=== PATIENT | male | born 1945 | race Caucasian/White ===

== ENCOUNTER → 2017-06-17 08:30 | Outpatient (CLI) | payer MEDICARE, SELFPAY ==
[2017-06-17 09:29] LABS: AST(SGOT) 29 U/L (15-37); Alanine Aminotransfer ALT/SGPT 36 U/L (16-61); Albumin, Serum 3.5 g/dL (3.2-5.0); Alkaline Phosphatase 66 U/L (45-117); Anion Gap 8 (5-15); BUN 19 mg/dL (7-18); BUN/Creat Ratio 20.9 RATIO (10-20); Calcium,Total 8.6 mg/dL (8.5-10.1); Chloride 104 mmol/L (98-107); Cholesterol 157 mg/dL (200); Creatinine, Serum 0.91 mg/dL (0.70-1.30); EST Glomerular Filtration Rate 87 mL/min (>60); Est Glom Filt Rate - Afr Amer 106 mL/min (>60); Globulin 3.4 g/dL (2.2-4.2); Glucose 139 mg/dL (70-110); High Density Lipoprotein 46 mg/dL; Potassium 4.6 mmol/L (3.5-5.1); Protein, Total 6.9 g/dL (6.4-8.2); Sodium Level 141 mmol/L (136-145); Triglycerides 133 mg/dL; Very Low Density Lipoprotein 27 mg/dL (5-40)
== END ==
PROVIDERS: Family Provider Family Medicine; PCP Family Medicine; Visit Provider Urology
DX: I10 Essential (primary) hypertension (principal); R97.20 Elevated prostate specific antigen [PSA]
CPT/HCPCS: 36415; 80053; 80061; 84153

== ENCOUNTER → 2017-07-14 07:21 | Outpatient (CLI) | payer MEDICARE, SELFPAY | PROVIDERS: Family Provider Family Medicine; PCP Family Medicine; Visit Provider Urology | DX: R97.20 Elevated prostate specific antigen [PSA] (principal) ==

== ENCOUNTER → 2017-08-18 17:31 | Outpatient (CLI) | payer MEDICARE, SELFPAY ==
--- NOTE | 2017-08-18 | IMM_PTH ---
PATIENT: JENI LOYA LOC: [facility] U#:[id number] AGE/SX: 80/M ROOM: RE08/18/[address]: Dr. London Contreras MD : 1945 BED: DIS: SPEC #: [id number] RECD: 08/20/17 10:29 STATUS: ALEC REQ #: [id number] GRACE: 08/18/17 00:[address]: Lonodn Contreras DEPT: IMMUNOHISTOCHEMISTRY RECD BY: Virginia Foote ENTERED: 08/20/17 10:32 SP TYPE: IMMUNO OTHR DR: Dr. Surinder Frye MD Tissues: B - PROSTATE RIGHT C - PROSTATE RIGHT D - PROSTATE LEFT E - PROSTATE LEFT F - PROSTATE LEFT Procedures: 34BE12 (add) P40 (add) 34BE12 (initial) PHYSICIAN & INSTITUTION [place] [id number] SPECIMEN INFORMATION: Tissue Source: B ? Right prostate mid, C ? Right prostate base, D ? Left prostate apex, E ? Left prostate mid, F ? Left prostate base Clinical Info: Elevated PSA Specimen Number: [id number] B-F CPT code: 44055, 42729 x9 METHODOLOGY: Deparaffinized sections of prefer/formalin-fixed tissue or PAP/DQ stained slides are incubated with monoclonal/polyclonal antibodies/oligonucleotide probes. Localization is made via biotin free immunoperoxidase method. Appropriate controls are performed and reacted as expected. Results on target cell population are indicated in the following table: RESULTS: ANTIBODY / CLONE RESULT Block B P40 (BC28) negative 34BE12 (34BE12) negative Block C P40 (BC28) negative 34BE12 (34BE12) negative Block D P40 (BC28) negative 34BE12 (34BE12) negative Block E P40 (BC28) negative 34BE12 (34BE12) negative Block F P40 (BC28) positive 34BE12 (34BE12) positive These tests were developed and their performance characteristics determined by [facility]. They may not have been cleared or approved by the U.S. Food and Drug Administration. The FDA has determined that such clearance or approval is not necessary. INTERPRETATION: B. Right prostate, mid, core biopsy: Adenocarcinoma. C. Right prostate, base, core biopsy: Atypical small acinar proliferation suspicious for carcinoma. D. Left prostate, apex, core biopsy: Adenocarcinoma. E. Left prostate, mid, core biopsy: Adenocarcinoma. F. Left prostate, base, core biopsy: High-grade prostatic intraepithelial neoplasia. AM:doni 08/20/17
--- NOTE | 2017-08-18 08:00 | PROSBIL_PTH ---
PATIENT: JENI LOYA LOC: [facility] U#:[id number] AGE/SX: 80/M ROOM: RE08/18/[address]: Dr. London Contreras MD : 1945 BED: DIS: SPEC #: [id number] RECD: 08/18/17 17:14 STATUS: ALEC SVETLANA #: [id number] GRACE: 08/18/17 08:[address]: London Contreras DEPT: SURGICAL PATHOLOGY RECD BY: Ko Li ENTERED: 08/19/17 08:04 SP TYPE: PROST BX DWAYNE DR: Dr. Surinder Frye MD Tissues: A - PROSTATE RIGHT B - PROSTATE RIGHT C - PROSTATE RIGHT D - PROSTATE LEFT E - PROSTATE LEFT F - PROSTATE LEFT Procedures: PROSTATE BX HEADER OPERATION: Prostate biopsy PRE-OP DIAGNOSIS: Elevated PSA TISSUE SUBMITTED: A - Right apex, B - Right mid, C - Right base, D - Left apex, E - Left mid, F - Left base MICROSCOPIC DIAGNOSIS A. Right prostate, apex, core biopsy: Adenocarcinoma: Scarsdale grade: 7 (3+4) Cores involved: 2 out of 2 Tissue involved: 35% Greatest tumor length: 3 mm Perineural invasion: Positive B. Right prostate, mid, core biopsy: Focal high-grade prostatic intraepithelial neoplasia (HGPIN). Focal atypical small acinar proliferation highly suspicious for adenocarcinoma, Logan 3+3. C. Right prostate, base, core biopsy: Adenocarcinoma: [place] grade: 6 (3+3) Cores involved: 1 out of 2 Tissue involved: 1% Greatest tumor length: <1 mm D. Left prostate, apex, core biopsy: Adenocarcinoma: Logan grade: 7 (3+4) Cores involved: 2 out of 2 Tissue involved: 15% Greatest tumor length: 2.5 mm E. Left prostate, mid, core biopsy: Adenocarcinoma: [place] grade: 6 (3+3) Cores involved: 1 out of 2 Tissue involved: 1% Greatest tumor length: 0.5 mm F. Left prostate, base, core biopsy: Focal high-grade prostatic intraepithelial neoplasia (HGPIN). AM:doni 08/20/17 COMMENT B-F. Immunohistochemistry ([id number]) supports the above diagnosis. MICROSCOPIC DESCRIPTION Slides are reviewed. GROSS DESCRIPTION A - Received is one container designated prostate, right apex. The specimen consists of two elongated fragments of light yan-white soft tissue measuring 1.5 and 1.7 cm in length and 0.1 cm in diameter. The specimen is totally submitted in one cassette. B - Received is one container designated prostate, right mid. The specimen consists of two elongated fragments of light yan-white soft tissue each measuring 1.5 cm in length and 0.1 cm in diameter. The specimen is totally submitted in one cassette. C - Received is one container designated prostate, right base. The specimen consists of two elongated fragments of light yan-white soft tissue each measuring 1.2 cm in length and 0.1 cm in diameter. The specimen is totally submitted in one cassette. D - Received is one container designated prostate, left apex. The specimen consists of two elongated fragments of light yan-white soft tissue each measuring 1.5 cm in length and 0.1 cm in diameter. The specimen is totally submitted in one cassette. E - Received is one container designated prostate, left mid. The specimen consists of two elongated fragments of light yan-white soft tissue each measuring 1.7 cm in length and 0.1 cm in diameter. The specimen is totally submitted in one cassette. F - Received is one container designated prostate, left base. The specimen consists of three elongated fragments of light yan-white soft tissue measuring 0.5 to 1.8 cm in length and 0.1 cm in diameter. The specimen is totally submitted in one cassette. / TIFFANIE:doni 08/19/17 TC:0 CPT: G0146
== END ==
PROVIDERS: Family Provider Family Medicine; PCP Family Medicine; Visit Provider Urology
DX: R97.20 Elevated prostate specific antigen [PSA] (principal)
CPT/HCPCS: 88305; 88341; 88342; G0416

== ENCOUNTER → 2017-08-27 13:52 | Outpatient (CLI) | payer MEDICARE, SELFPAY ==
--- NOTE | 2017-08-27 13:56 | CT_ITS ---
STUDY: CT ABDOMEN AND PELVIS WITH CONTRAST REASON FOR EXAM: Male, 72 years old. Prostate cancer. Prior splenectomy. RADIATION DOSAGE (If Supplied By Facility): CTDIvol = ( 15.63 ) mGy, DLP = ( 606.68 ) mGycm TECHNIQUE: Transaxial images were obtained from the dome of the diaphragm to the symphysis pubis without oral contrast. 100 ml of Isovue 300 contrast was administered. Sagittal and coronal images were reconstructed. Individualized dose optimization techniques were used for this CT. COMPARISON: None. FINDINGS: The visualized lung bases are unremarkable. The visualized portions of the heart are within normal limits. There is decreased attenuation of the liver consistent with steatosis. There are surgical clips in the gallbladder fossa consistent with a prior cholecystectomy. The patient is status post splenectomy. Normal pancreas. Normal bilateral adrenal glands. There is a 2 cm cyst in the lower pole of the right kidney. Normal left kidney. There is a small hiatal hernia. Normal small intestine. There are multiple colonic diverticula consistent with diverticulosis. The appendix is visualized and appears normal. There is diffuse atherosclerotic calcification of the abdominal aorta, without a demonstrated aneurysm. Normal inferior vena cava. Normal retroperitoneum. Normal urinary bladder. There is enlargement of the prostate gland. It measures 5.2 cm x 5 cm. Small bilateral inguinal hernias containing fat. There are mild degenerative changes of the visualized lumbar spine. Loss of height of the superior endplate of the T12 vertebrae. CT/Abdomen/Pelvis WITH Contrast IMPRESSION: Fatty infiltration of the liver. The patient is status post splenectomy and cholecystectomy. Sigmoid diverticulosis. Prostatic enlargement. Electronically Signed: Alex Tenorio MD at 14:54 EDT Tel [phone], Service support ,
[2017-08-27 14:16] LABS: CREATININE FINGERSTICK 0.8 mg/dL (0.70-1.30); EGFR FINGERSTICK > 60.0000 mL/min (>60)
== END ==
PROVIDERS: Family Provider Family Medicine; PCP Family Medicine; Visit Provider Urology
DX: C61 Malignant neoplasm of prostate (principal); K76.0 Fatty (change of) liver, not elsewhere classified; K57.30 Diverticulosis of large intestine without perforation or abscess without bleeding; Z90.49 Acquired absence of other specified parts of digestive tract; Z90.81 Acquired absence of spleen
CPT/HCPCS: 74177; Q9967

== ENCOUNTER → 2017-08-31 10:21 | Outpatient (CLI) | payer MEDICARE, SELFPAY ==
--- NOTE | 2017-08-31 10:23 | NM_ITS ---
CLINICAL: 72-year-old male with recent diagnosis of primary prostate carcinoma. WHOLE BODY 99m Tc MDP RADIONUCLIDE BONE SCINTIGRAPHY COMPARISON: MRI of the prostate report 08/19/2017, CT of the abdomen-pelvis report 08/27/2017 FINDINGS: Following the intravenous administration of 23.5 mCi of 99m Tc MDP, whole body bone images reveal: 1. Increased radiopharmaceutical concentration is identified in the acromioclavicular compartment of the right shoulder, glenohumeral compartments of both shoulders, the sternoclavicular compartment of the left shoulder, left wrist, left knee, second lumbar vertebra posteriorly on the left, ninth thoracic vertebra posteriorly on the right, left midfoot. 2. The remaining skeletal structures are scintigraphically unremarkable with normal-appearing renal images and urinary bladder activity identified. An increase in uptake is identified in the midline calvarium contiguous to the sagittal suture most consistent with a normal variant. NM/Bone Scan Whole Body IMPRESSION: 1. The increase in radiopharmaceutical concentration identified in the bilateral shoulders, left wrist, left knee, thoracic and lumbar spine, left midfoot is most consistent with degenerative arthritis. 2. There is no definitive scintigraphic evidence of diffuse axial skeletal metastatic disease on the current examination. Electronically Signed: Ko Gutierrez DO at 20:22 EDT Tel , Service support ,
== END ==
PROVIDERS: Family Provider Family Medicine; PCP Family Medicine; Visit Provider Urology
DX: C61 Malignant neoplasm of prostate (principal)
CPT/HCPCS: 78306

== ENCOUNTER 2017-10-14 05:21 | Inpatient (IN) | payer MEDICARE, SELFPAY ==
[2017-10-05 14:24] VITALS: BP 147/96; PULSE 70; RESP 16; TEMP 36.6; O2SAT 99; BMI 24.6
--- NOTE | 2017-10-05 14:32 | SDCEKG_ITS ---
Test Reason : Blood Pressure : / mmHG Vent. Rate : 068 BPM Atrial Rate : 068 BPM P-R Int : 154 ms QRS Dur : 080 ms QT Int : 422 ms P-R-T Axes : 055 064 068 degrees QTc Int : 448 ms Normal sinus rhythm Normal ECG Confirmed by BALTAZAR NOGUERA, STEPHANIE ([id number]), subeditor JESSIE MASON ([id number]) on 10/09/2017 11:02:14 AM Referred By: London Contreras Confirmed By:STEPHANIE LEDESMA MD
[2017-10-05 15:00] LABS: Hematocrit 43.8 % (40-54); Hemoglobin 14.7 g/dl (13.0-16.5); Mean Corp Hgb Conc 33.6 g/gl (32-36); Mean Corpuscular Hgb 30.6 pg (27.0-32.0); Mean Corpuscular Volume 91.1 fL (80-94); Mean Platelet Vol. 10.9 fl (6.2-12.0); Platelet Count 220 K/mm3 (150-450); RBC Distribution Width CV 15.2 % (11.6-14.6); RBC Distribution Width SD 49.5 fl (35.1-43.9); Red Blood Count 4.81 M/mm3 (4.6-6.2); White Blood Count 7.7 K/mm3 (4.4-11.0)
[2017-10-05 15:03] LABS: Scan Indicated on CBC? Y/N NO
[2017-10-05 15:10] LABS: Anion Gap 8 (5-15); BUN 23 mg/dL (7-18); BUN/Creat Ratio 25.7 RATIO (10-20); Calcium,Total 8.9 mg/dL (8.5-10.1); Chloride 107 mmol/L (98-107); EST Glomerular Filtration Rate 89 mL/min (>60); Est Glom Filt Rate - Afr Amer 108 mL/min (>60); Estimated Creatinine Clearance 80.18 ml/min; Glucose 96 mg/dL (74-106); Potassium 3.7 mmol/L (3.5-5.1); Sodium Level 143 mmol/L (136-145)
[2017-10-14] VITALS (10 sets, daily range): BP systolic 118–154; BP diastolic 59–92; PULSE 68–96; RESP 14–16; TEMP 36.1–37.4; O2SAT 96–100; BMI 24.6; BMI 24.5
--- NOTE | 2017-10-14 07:30 | PROST_PTH ---
PATIENT: JENI LOYA LOC: [facility] U#:[id number] AGE/SX: 72/M ROOM: [facility]18 RE10/14/[address]: Dr. London Contreras MD : 1945 BED: 1 DIS: 10/16/2017 SPEC #: [id number] RECD: 10/14/17 15:15 STATUS: ALEC RERachel #: [id number] GRACE: 10/14/17 07:[address]: London Contreras DEPT: SURGICAL PATHOLOGY RECD BY: Ko Li ENTERED: 10/15/17 08:18 SP TYPE: PROSTATE OTHR DR: Dr. Surinder Frye MD Tissues: A - Prostate, NOS B - Lymph node of pelvis, NOS C - Lymph node of pelvis, NOS D - Adipose tissue Procedures: Surgery Specimen Level IV Surgery Specimen Level HEADER OPERATION: Lap robotic prostatectomy PRE-OP DIAGNOSIS: Prostate cancer TISSUE SUBMITTED: A ? Prostate, B ? Left lymph node, C ? Right lymph node, D ? Fat over prostate MICROSCOPIC DIAGNOSIS A. Prostate, radical prostatectomy: Prostatic adenocarcinoma. See cancer summary below. B. Left lymph node, biopsy: A piece of mature adipose tissue, negative for carcinoma. No lymph node tissue is identified. C. Right lymph node, biopsy: A piece of mature adipose tissue, negative for carcinoma. No lymph node tissue is identified. D. Fat over prostate, biopsy: Mature adipose tissue, negative for carcinoma. PROSTATE CANCER (RADICAL) SUMMARY: Procedure - radical prostatectomy Prostate size ? 6 cm transversely, 4.5 cm anterior-posteriorly, 4.5 cm from apex to base Prostate weight ? 74 gm Lymph node sampling ? no lymph nodes identified (see specimen B & C). Histologic type ? adenocarcinoma (acinar, not otherwise specified) Histologic grade (Logan Pattern): Primary pattern - 3 Secondary pattern - 4 Tertiary pattern ? not applicable Total Glyndon score - 7 Tumor Quantitation: Proportion (%) of prostate involved by tumor - ~20% Extraprostatic extension ? not identified Seminal vesicle invasion - not identified Margins ? apical margin is focally involved by invasive carcinoma. Treatment effect on carcinoma ? no known presurgical therapy Lymph-Vascular invasion - not identified Perineural invasion - present Regional lymph nodes ? no nodes found Distant metastasis ? not applicable Additional pathologic findings - Focal high-grade prostatic intraepithelial neoplasia (HGPIN). - Chronic inflammation. - Benign prostatic hyperplasia, glandular and stromal type. Ancillary studies ? not performed PATHOLOGIC STAGE: pT2c pNx Mx The above summary is in compliance with [employer] (CAP) Cancer Protocols Checklist and [place] [employer] Committee on Cancer (AJCC), Staging Manual, 8th Ed. SJ:doni 10/27/17 COMMENT A. The tumor involves the right lobe apical portion of the prostate and left lobe apical, mid and basal portion of the prostate and present in right lobe slides 4 and 8 and in the left lobe 3, 7, 10, 12, 14 and 18. Please make reference to previous specimen ([id number]) right prostate, apex, right apex, base, left prostate, apex and left prostate, mid, core biopsy with diagnosis of adenocarcinoma and right prostate, mid and left prostate, base with diagnosis of focal high-grade prostatic intraepithelial neoplasia. Case has been reviewed in consultation with Dr. Haines who concurs with the above diagnosis. IDC:AM MICROSCOPIC DESCRIPTION Slides are reviewed. GROSS DESCRIPTION A - Received in fixative is one container labeled with the patient's name and designated prostate. The specimen consists of a radical prostatectomy specimen consisting of prostate and bilateral seminal vesicle weighing 74 gm. The prostate measures 6 cm transversely, 4.5 cm anterior-posteriorly and 4.5 cm from apex to base. The right seminal vesicle measures 3 x 1 x 1 cm and right vas deferens measures 3 cm in length and 0.4 cm in diameter. The left seminal vesicle measures 2.5 x 1 x 0.5 cm and left vas deferens measures 3.5 cm in length and 0.4 cm in diameter. The specimen is inked as follows: anterior surface prostate ? yellow, posterior surface prostate ? black, right lobe lateral surface ? blue, left lobe lateral surface ? green, right seminal vesicle and vas deferens posterior surface ? black, anterior surface ? blue, left seminal vesicle posterior surface ? black and anterior surface ? green. Sections of the prostate do not reveal any obvious mass lesion. Machine Gunner sections are submitted in 20 cassettes as follows: 1 ? right seminal vesicle and vas deferens, 2 ? left seminal vesicle and vas deferens, 3 & 4 ? apical margin, enface, 5 & 6 ? bladder base margin, enface, 7-10 ? apical portion of the prostate, 11-14 ? middle portion of the prostate, 15-20 ? basal portion of the prostate (cassettes 19 & 20 contain the most basal portion of the prostate). Sections will be submitted after infusion cycle. B - Received in fixative is one container labeled with the patient's name and designated left lymph node. The specimen consists of a piece of yellow adipose tissue measuring 0.7 x 0.5 x 0.1 cm. The entire specimen is submitted in one cassette. Sections will be submitted after infusion cycle. C - Received in fixative is one container labeled with the patient's name and designated right lymph node. The specimen consists of a piece of yellow adipose tissue measuring 1.5 x 0.2 x 0.1 cm. The entire specimen is submitted in one cassette. Sections will be submitted after infusion cycle. D - Received in fixative is one container labeled with the patient's name and designated fat over prostate. The specimen consists of a piece of yellow adipose tissue measuring 3 x 2 x 0.3 cm. The entire specimen is submitted in one cassette. Sections will be submitted after infusion cycle. / SJ:rg 10/15/17 TC:0 CPT: 10650, 35191 x3
[2017-10-14] MEDS: Cefazolin 2 GM in 0.9% Normal Saline 100 ML IV (07:35)
[2017-10-14] MEDS: Bupivacaine Mpf 0.5% 30 ML VIAL (11:35)
--- NOTE | 2017-10-14 12:01 | OP.PCM_ITS ---
Report of Operation Date of Procedure: 10/14/17 Pre-Operative Diagnosis: Prostate cancer Post-Operative Diagnosis: Same Surgery/Procedure Performed:: Laparoscopic robotic assisted radical prostatectomy, EMG monitoring the pelvic nerves and sphincter, suture suspension of the urethra, bilateral pelvic lymph node dissection. Description of Surgical Findings:: 72-year-old male taken back to the operating room after smooth induction of anesthesia he was placed supine on the table in the dorsal lithotomy position for approach the prostate with the robot, I used a Veress needle to obtain his CO2 gas in the abdomen, the abdomen been prepped and draped in usual fashion, I then used the Visiport to go into the abdomen inspected the abdomen took down some adhesions and then placed my ports, released the sigmoid colon off the lateral wall, and retracted the colon in the pelvis, dissected out the left and right vas deferens and left the right seminal vesicle posterior to the prostate , then dropped the bladder and created the space of Retzius, dissected out some lymph node tissue sampling to the right side, dissected out some lymph node tissue sampling to the left side, I then dissected out the prostate apical tissue apical the prostate was dissected out put a stitch in the dorsal vein complex, I then dissected between the prostate and the bladder he had a prior TURP and a very large prostate and so the opening to the bladder was quite large once the separation of the bladder and prostate was completed I then identified the pedicle of the right side clipped the pedicle identify the neurovascular bundle and spare the neurovascular bundle on the right side all the way to the apex, I then went to the left side identified the neurovascular bundle on the left side and the pedicle on the left side clipped the pedicle and then dissected the neurovascular bundle off the prostate and the left side all the way to the apex, then transected to the dorsal vein complex circumferentially dissected around the urethra, I then placed EMG electrodes on the lateral pelvic wall on the right side the left side checked for the electrical's signal and action potential and there is still present on the left side the right side and also around the urethra I did this to then find the nerves were sparing., Then I transected through the urethra, I then reached reconstructed the bladder neck with Vicryl stitches in a running fashion for a reverse tennis racquet closure to get a nice opening in the urethra and bladder neck to match up in size. I then then did a suture suspension of the urethra to prevent incontinence between the bladder and the urethra once the anastomosis was completed over a catheter it was watertight, I re-tacked the bladder back up to the anterior abdominal wall, he had prior mesh surgery and this was all intact and in place, we extracted the prostate from the umbilicus, closed all our ports, and closed our incisions with subcuticular stitches patient anesthetic was reversed taken back to PACU good condition he will follow -up in the office in about 2 weeks to remove the catheter. Type of Anesthesia:: General - Admit VTE Documentation VTE Present on Admission: No VTE Mechan Device Prophylaxis: SCD's VTE Pharm Prophylaxis ordered?: No Reason prophylaxis not ordered:: Treatment Not Indicated
--- NOTE | 2017-10-14 12:09 | PCM.DC.URO ---
Discharge Diet: Light diet - advance as tolerated, Soft diet Discharge Activity: May Not Drive, May not drive while taking narcotic pain medications., May Shower Call your doctor if your incision/area has: Continuous Slow Oozing, Sudden Increased Bleeding, Increased Pain/ Swelling, Increased Redness, Foul Smelling Discharge, Swelling at the incision site Call your doctor if you observe: Fever of 101 or Higher Suture Line Care: Avoid Pulling/Pushing, Avoid Pinching/Bending Instructions: Discharge Instructions for Radical Prostatectomy Allergies/Adverse Reactions: Allergies No Known Allergies Allergy (Unverified 09/04/17 09:02) Medications to take at Discharge aspirin 81 mg chewable tablet 81 mg PO DAILY 09/04/17 atorvastatin 20 mg tablet 20 mg PO QHS 30 Days #30 09/04/17 metoprolol succinate ER 25 mg tablet,extended release 24 hr 25 mg PO DAILY 30 Days #30 09/04/17 omega 6-znt-dfm-fish oil 1,000 mg (120 mg-180 mg) capsule 1,500 cap PO DAILY 09/04/17 vitamin B12 0.5 mg-folic acid 1 mg tablet 500 mg PO DAILY 09/04/17 Lisinopril [Prinivil] 10 mg PO DAILY 10/05/17 Ciprofloxacin [Cipro] 500 mg PO DAILY #14 tab 10/14/17 Docusate Sodium [Colace] 100 mg PO BID #20 cap 10/14/17 Hydrocodone/Acetaminophen [[place] 5-325 Tablet] 1 ea PO Q4H PRN PRN 5 Days #14 tab 10/14/17 The following prescriptions were given: Hydrocodone/Acetaminophen [[place] 5-325 Tablet] 1 ea PO Q4H PRN PRN 5 Days #14 tab PRN Reason: Pain Ciprofloxacin [Cipro] 500 mg PO DAILY #14 tab Docusate Sodium [Colace] 100 mg PO BID #20 cap Primary Care Physician: Crow Frye MD [Primary Care Provider] - Please Follow Up With: London Contreras MD When: October 29 at 8:30 am Proposed Discharge Date: 10/15/17
[2017-10-14] MEDS: Ketorolac 15 MG/ML Vial IV (13:16)
--- NOTE | 2017-10-14 15:01 | CASEMGMT ---
DC Plan: Home on dc -Intro role of CM to patient and his family. No needs identified. Pt will go to daughter's home for 2 weeks on dc. Sergio ORNELAS BSN ACM
[2017-10-14] MEDS: 0.9% Normal Saline 1,000 ML 125 ML IV (21:19)
[2017-10-14] MEDS: Docusate Sodium 100 MG Capsule 200 MG PO (21:19)
[2017-10-14] MEDS: Atorvastatin Calcium 20 MG Tablet PO (21:20)
[2017-10-14] MEDS: Ciprofloxacin 500 MG Tablet PO (21:20)
[2017-10-14] MEDS: Metoprolol(XL)Succ 25 MG Tablet PO (21:22)
[2017-10-15] VITALS (7 sets, daily range): BP systolic 110–151; BP diastolic 59–86; PULSE 74–80; RESP 16–18; TEMP 36.8–37.6; O2SAT 96–99
[2017-10-15 06:07] LABS: Hematocrit 35.2 % (40-54); Hemoglobin 11.5 g/dl (13.0-16.5); Mean Corp Hgb Conc 32.7 g/gl (32-36); Mean Corpuscular Hgb 29.8 pg (27.0-32.0); Mean Corpuscular Volume 91.2 fL (80-94); Mean Platelet Vol. 10.3 fl (6.2-12.0); Platelet Count 197 K/mm3 (150-450); RBC Distribution Width SD 50.3 fl (35.1-43.9); Red Blood Count 3.86 M/mm3 (4.6-6.2)
[2017-10-15 06:24] LABS: Anion Gap 5 (5-15); BUN 12 mg/dL (7-18); Calcium,Total 7.4 mg/dL (8.5-10.1); Chloride 110 mmol/L (98-107); Creatinine, Serum 0.75 mg/dL (0.70-1.30); EST Glomerular Filtration Rate 109 mL/min (>60); Est Glom Filt Rate - Afr Amer 132 mL/min (>60); Estimated Creatinine Clearance 72.16 ml/min; Glucose 131 mg/dL (74-106); Potassium 3.9 mmol/L (3.5-5.1); Sodium Level 143 mmol/L (136-145)
[2017-10-15 06:34] LABS: Scan Indicated on CBC? Y/N NO
--- NOTE | 2017-10-15 07:54 | PCM.PROGNOTE ---
Subjective: Status post robotic prostatectomy, doing well, abdomen soft and benign, tolerating regular diet already out of bed. Urine has a little bit of blood in it few clots positional with draining. - Physical Exam General: Alert, Oriented x3, Cooperative HEENT: Atraumatic, PERRLA, EOMI, Normocephalic Neck: Supple, No JVD, Negative Carotid Bruits Lungs: Clear to auscultation, Normal air movement Cardiovascular: Regular rate, No murmurs Abdomen: Bowel Sounds Present, Soft, Non Tender Extremities: No edema, Capillary Refill Less than 3 Seconds Skin: No rashes, No breakdown Musculoskeletal: No Tenderness to Palpation of Joints or Extremities Neurological: Cranial nerves II-XII grossly intact Psych/Mental Status: Normal Affect, Appropriate Vital Signs Temp Pulse Resp BP Pulse Ox 98.3 F 74 16 134/83 H 97 10/15/17 03:00 10/15/17 03:00 10/15/17 03:00 10/15/17 03:00 10/15/17 03:00 Oxygen Delivery Method Room Air Weight: 79.832 kg Body Mass Index (BMI) 24.5 Intake and Output for Last 24 Hours 10/13/17 10/14/17 10/15/17 23:59 23:59 23:59 Intake Total 4355 / 4355 2369 / 2369 Output Total 975 / 975 2450 / 2450 Balance 3380 / 3380 -81 / -81 Laboratory Tests Past 24 Hrs 10/15/17 10/15/17 05:30 05:30 WBC 9.0 RBC 3.86 L Hgb 11.5 L Hct 35.2 L MCV 91.2 MCH 29.8 MCHC 32.7 RDW 15.0 H RDW Differential 50.3 H Plt Count 197 MPV 10.3 Sodium 143 Potassium 3.9 Chloride 110 H Carbon Dioxide 28.0 Anion Gap 5 BUN 12 Creatinine 0.75 Estim Creat Clear Calc 72.16 Est GFR (MDRD) Af Amer 132 Est GFR (MDRD) Non-Af 109 BUN/Creatinine Ratio 16.0 Glucose 131 H Calcium 7.4 L Medical Necessity - Tobacco Use Smoking Status: Never smoker Assessment/Plan All Active Problems (Last Updated 09/04/17 @ 09:04 by Fawn Aldridge) Pharyngitis, acute (Acute) Postop day #1 status post radical prostatectomy doing fairly well urine is clearing up I would expect the patient be able to discharge home tomorrow morning. Plan to Hep-Lock IV fluids advance to regular diet and Roberts to leg bag.
[2017-10-15] MEDS: Ciprofloxacin 500 MG Tablet PO ×2 (09:36→21:07)
[2017-10-15] MEDS: Docusate Sodium 100 MG Capsule 200 MG PO ×2 (09:36→21:07)
[2017-10-15] MEDS: Lisinopril 10 MG Tablet PO (09:37)
[2017-10-15] MEDS: HYDROcodone Bitartrate/Apap 5/325 Tablet PO (21:06)
[2017-10-15] MEDS: Metoprolol(XL)Succ 25 MG Tablet PO (21:07)
[2017-10-15] MEDS: Atorvastatin Calcium 20 MG Tablet PO (21:07)
[2017-10-16 04:27] VITALS: BP 143/77; PULSE 72; RESP 16; TEMP 37.1; O2SAT 99
[2017-10-16 09:00] VITALS: BP 133/83; PULSE 79; RESP 16; TEMP 36.8; O2SAT 97
[2017-10-16] MEDS: Ciprofloxacin 500 MG Tablet PO (09:02)
[2017-10-16] MEDS: Lisinopril 10 MG Tablet PO (09:02)
--- NOTE | 2017-10-16 12:05 | PCM.DC.SUM ---
Discharge Date and Diagnosis Date of Admission: 10/14/17 Date of Discharge: 10/16/17 Hospital Course and Treatment None Operations: - - Laparoscopic robotic assisted radical prostatectomy Procedures: None Summary of Care Provided: The patient is a 72 year old male with a very large prostate and prostate cancer underwent a laparoscopic robotic assisted radical prostatectomy. Postoperative day #1 was doing well tolerating regular food walking around postoperative and then a #2 is tolerating regular diet and moves his bowels abdomen soft and benign he was not having any pain whatsoever CBC and BMP were good on postop check. Discharge home today with Roberts catheter. Discharge Diet: Light diet - advance as tolerated, Soft diet Discharge Activity: May Not Drive, May not drive while taking narcotic pain medications., May Shower Call your doctor if your incision/area has: Continuous Slow Oozing, Sudden Increased Bleeding, Increased Pain/ Swelling, Increased Redness, Foul Smelling Discharge, Swelling at the incision site Call your doctor if you observe: Fever of 101 or Higher Suture Line Care: Avoid Pulling/Pushing, Avoid Pinching/Bending Home Medications: Medications to take at Discharge aspirin 81 mg chewable tablet 81 mg PO DAILY 09/04/17 atorvastatin 20 mg tablet 20 mg PO QHS 30 Days #30 09/04/17 metoprolol succinate ER 25 mg tablet,extended release 24 hr 25 mg PO DAILY 30 Days #30 09/04/17 omega 7-gfz-hls-fish oil 1,000 mg (120 mg-180 mg) capsule 1,500 cap PO DAILY 09/04/17 vitamin B12 0.5 mg-folic acid 1 mg tablet 500 mg PO DAILY 09/04/17 Lisinopril [Prinivil] 10 mg PO DAILY 10/05/17 Ciprofloxacin [Cipro] 500 mg PO DAILY #14 tab 10/14/17 Docusate Sodium [Colace] 100 mg PO BID #20 cap 10/14/17 Hydrocodone/Acetaminophen [[place] 5-325 Tablet] 1 ea PO Q4H PRN PRN 5 Days #14 tab 10/14/17 Following Prescrptions Were Given to Patient: Hydrocodone/Acetaminophen [[place] 5-325 Tablet] 1 ea PO Q4H PRN PRN 5 Days #14 tab PRN Reason: Pain Ciprofloxacin [Cipro] 500 mg PO DAILY #14 tab Docusate Sodium [Colace] 100 mg PO BID #20 cap Primary Care Physician: Crow Frye MD [Primary Care Provider] - Please Follow Up With: London Contreras MD When: October 29 at 8:30 am Patient Instructions: Discharge Instructions for Radical Prostatectomy Medical Necessity - Tobacco Use Smoking Status: Never smoker Meaningful Use Info Meaningful Use Diagnoses (Choose all that apply): None applicable
== END 2017-10-16 12:50 | disposition home or self-care (01) | DRG 708 ==
LOC: MS2 05:22
PROVIDERS: Anesthesiology; Admitting Provider Urology; Family Provider Family Medicine; PCP Family Medicine; Visit Provider Urology
PROC: 0VT04ZZ Resection of Prostate, Percutaneous Endoscopic Approach (ICD-10-PCS; CPT 55866; principal; 2017-10-14 07:10)
DX: C61 Malignant neoplasm of prostate (principal)
CPT/HCPCS: 36415; 80048; 85027; 86850; 86900; 88304; 88305; 88307; 88309; 93005; 97802; J7030; J7120; J2405; J3490

== ENCOUNTER → 2017-12-14 11:23 | Outpatient (CLI) | payer MEDICARE, SELFPAY ==
[2017-12-14 12:43] LABS: PSA,Total- Diagnostic 0.01 ng/mL (0.0-4.0)
== END ==
PROVIDERS: Family Provider Family Medicine; PCP Family Medicine; Visit Provider Urology
DX: C61 Malignant neoplasm of prostate (principal)
CPT/HCPCS: 36415; 84153

== ENCOUNTER → 2018-02-01 08:29 | Outpatient (CLI) | payer MEDICARE, SELFPAY ==
[2018-02-01 10:11] LABS: PSA,Total- Diagnostic < 0.01 ng/mL (0.0-4.0)
== END ==
PROVIDERS: Family Provider Family Medicine; PCP Family Medicine; Visit Provider Urology
DX: C61 Malignant neoplasm of prostate (principal)
CPT/HCPCS: 36415; 84153

== ENCOUNTER 2018-03-15 10:00 | Outpatient (RCR) | payer MEDICARE, SELFPAY | END 2018-03-17 23:59 | LOC: DC 10:00 | PROVIDERS: Family Provider Family Medicine; PCP Family Medicine; Visit Provider Family Medicine | DX: E66.3 Overweight (principal); I10 Essential (primary) hypertension; E78.5 Hyperlipidemia, unspecified; R73.01 Impaired fasting glucose; Z71.3 Dietary counseling and surveillance | CPT/HCPCS: 97802; G0108 ==

== ENCOUNTER 2018-04-14 12:55 | Outpatient (RCR) | payer MEDICARE, SELFPAY | END 2018-04-16 23:59 | LOC: DC 12:55 | PROVIDERS: Family Provider Family Medicine; PCP Family Medicine; Visit Provider Family Medicine | DX: E66.3 Overweight (principal); I10 Essential (primary) hypertension; E78.5 Hyperlipidemia, unspecified; R73.01 Impaired fasting glucose; Z71.3 Dietary counseling and surveillance | CPT/HCPCS: 97803 ==

== ENCOUNTER 2018-05-05 16:14 | Outpatient (RCR) | payer MEDICARE, SELFPAY ==
[2017-10-14 13:09] VITALS: BMI 24.5
== END 2018-05-17 23:59 ==
LOC: DC 16:14
PROVIDERS: Family Provider Family Medicine; PCP Family Medicine; Visit Provider Family Medicine
DX: E66.3 Overweight (principal); I10 Essential (primary) hypertension; E78.5 Hyperlipidemia, unspecified; R73.01 Impaired fasting glucose; Z71.3 Dietary counseling and surveillance
CPT/HCPCS: 97803

== ENCOUNTER 2018-06-10 13:00 | Outpatient (RCR) | payer MEDICARE, SELFPAY ==
[2017-10-14 13:09] VITALS: BMI 24.5
== END 2018-06-17 23:59 ==
LOC: DC 13:00
PROVIDERS: Family Provider Family Medicine; PCP Family Medicine; Visit Provider Family Medicine
DX: E66.3 Overweight (principal); I10 Essential (primary) hypertension; E78.5 Hyperlipidemia, unspecified; E11.9 Type 2 diabetes mellitus without complications; Z71.3 Dietary counseling and surveillance
CPT/HCPCS: 97803; G0109

== ENCOUNTER 2018-06-30 09:25 | Outpatient (RCR) | payer MEDICARE, SELFPAY ==
[2017-10-14 13:09] VITALS: BMI 24.5
== END 2018-07-15 23:59 ==
LOC: DC 09:25
PROVIDERS: Family Provider Family Medicine; PCP Family Medicine; Visit Provider Family Medicine
DX: E66.3 Overweight (principal); I10 Essential (primary) hypertension; E78.5 Hyperlipidemia, unspecified; E11.9 Type 2 diabetes mellitus without complications; Z71.3 Dietary counseling and surveillance
CPT/HCPCS: G0109

== ENCOUNTER → 2018-07-08 08:37 | Outpatient (CLI) | payer MEDICARE, SELFPAY ==
[2017-10-14 13:09] VITALS: BMI 24.5
[2018-07-08 09:56] LABS: ALB/GLOB Ratio 1.1 RATIO (0.9-2.4); AST(SGOT) 26 U/L (15-37); Alanine Aminotransfer ALT/SGPT 30 U/L (16-61); Albumin, Serum 3.4 g/dL (3.2-5.0); Alkaline Phosphatase 67 U/L (45-117); Anion Gap 7 (5-15); BUN 15 mg/dL (7-18); BUN/Creat Ratio 17.9 RATIO (10-20); Calcium,Total 8.6 mg/dL (8.5-10.1); Chloride 108 mmol/L (98-107); Cholesterol 124 mg/dL (200); Creatinine, Serum 0.84 mg/dL (0.70-1.30); EST Glomerular Filtration Rate 96 mL/min (>60); Est Glom Filt Rate - Afr Amer 116 mL/min (>60); Globulin 3.2 g/dL (2.2-4.2); Glucose 128 mg/dL (74-106); High Density Lipoprotein 46 mg/dL; PSA,Total- Diagnostic < 0.01 ng/mL (0.0-4.0); Potassium 4.3 mmol/L (3.5-5.1); Protein, Total 6.6 g/dL (6.4-8.2); Sodium Level 142 mmol/L (136-145); Thyroid Stim Hormone (TSH) 2.32 uIU/mL (0.358-3.74); Triglycerides 87 mg/dL; Very Low Density Lipoprotein 17 mg/dL (5-40)
== END ==
PROVIDERS: Family Provider Family Medicine; PCP Family Medicine; Referring Provider Urology; Visit Provider Urology
DX: E11.9 Type 2 diabetes mellitus without complications (principal); C61 Malignant neoplasm of prostate
CPT/HCPCS: 36415; 80053; 80061; 84153; 84443

== ENCOUNTER 2018-07-22 12:40 | Outpatient (RCR) | payer MEDICARE, SELFPAY ==
[2017-10-14 13:09] VITALS: BMI 24.5
== END 2018-08-15 23:59 ==
LOC: DC 12:40
PROVIDERS: Family Provider Family Medicine; PCP Family Medicine; Visit Provider Family Medicine
DX: E66.3 Overweight (principal); I10 Essential (primary) hypertension; E78.5 Hyperlipidemia, unspecified; E11.9 Type 2 diabetes mellitus without complications; Z71.3 Dietary counseling and surveillance
CPT/HCPCS: G0109

== ENCOUNTER 2018-08-19 09:26 | Outpatient (RCR) | payer MEDICARE, SELFPAY ==
[2017-10-14 13:09] VITALS: BMI 24.5
== END 2018-08-19 16:43 | disposition home or self-care (01) ==
LOC: DC 09:26
PROVIDERS: Family Provider Family Medicine; PCP Family Medicine; Visit Provider Family Medicine
DX: E66.3 Overweight (principal); I10 Essential (primary) hypertension; E78.5 Hyperlipidemia, unspecified; E11.9 Type 2 diabetes mellitus without complications; Z71.3 Dietary counseling and surveillance
CPT/HCPCS: G0109

== ENCOUNTER → 2019-03-03 07:43 | Outpatient (CLI) | payer MEDICARE, SELFPAY ==
[2019-02-18 14:56] VITALS: BMI 24.5
[2019-03-03 09:33] LABS: PSA,Total- Diagnostic 0.01 ng/mL (0.0-4.0)
== END ==
PROVIDERS: Family Provider Family Medicine; PCP Family Medicine; Referring Provider Urology; Visit Provider Urology
DX: C61 Malignant neoplasm of prostate (principal)
CPT/HCPCS: 36415; 84153

== ENCOUNTER 2019-03-11 06:38 | Day surgery (SDC) | payer MEDICARE, SELFPAY ==
[2019-02-18 14:56] VITALS: BMI 24.5
[2019-03-11] VITALS (8 sets, daily range): BP systolic 120–162; BP diastolic 76–89; PULSE 58–77; RESP 16; TEMP 36.4–36.9; O2SAT 97–100; BMI 23.0
[2019-03-11] MEDS: Lactated Ringers 1,000 ML 100 ML IV ×2 (07:33→08:24)
--- NOTE | 2019-03-11 08:00 | COLBX_PTH ---
PATIENT: JENI LOYA LOC: EN U#:[id number] AGE/SX: 74/M ROOM: RE03/11/[address]: Dr. Aj Banegas MD : 1945 BED: DIS: 03/11/2019 SPEC #: [id number] RECD: 03/11/19 10:45 STATUS: ALEC RERachel #: [id number] GRACE: 03/11/19 08:[address]: Aj Banegas DEPT: SURGICAL PATHOLOGY RECD BY: Woody Mitchell ENTERED: 03/11/19 11:07 SP TYPE: COLON BX OTHR DR: MD Surinder Roman MD Tissues: SPLENIC FLEXURE Procedures: Surgery Specimen Level IV HEADER OPERATION: Colonoscopy (MOD) PRE-OP DIAGNOSIS: Colonic polyps TISSUE SUBMITTED: Splenic flexure polyp biopsy MICROSCOPIC DIAGNOSIS Splenic flexure polyp, biopsy: Tubular adenoma. TIFFANIE:doni 03/14/19 COMMENT Case has been reviewed in consultation with Dr. Haines who concurs with the above diagnosis. IDC:AM MICROSCOPIC DESCRIPTION Slides are reviewed. GROSS DESCRIPTION Received in fixative is one container labeled with the patient's name and designated splenic flexure polyp biopsy. The specimen consists of one irregular fragment of light yan soft tissue that measures 0.3 x 0.3 x 0.1 cm. The specimen is totally submitted in one cassette. / SJ:doni 03/11/19 TC:1 CPT: 63721
--- NOTE | 2019-03-11 08:09 | HP.PCM_ITS ---
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: No Is patient in pain?: No Allergies No Known Allergies Allergy (Verified 02/18/19 14:55) Medications aspirin 81 mg chewable tablet 81 mg PO DAILY 09/04/17 [History Confirmed 02/18/19] atorvastatin 20 mg tablet 20 mg PO QHS 30 Days #30 09/04/17 [History Confirmed 02/18/19] metoprolol succinate ER 25 mg tablet,extended release 24 hr 25 mg PO DAILY 30 Days #30 09/04/17 [History Confirmed 02/18/19] omega 8-gex-lcw-fish oil 1,000 mg (120 mg-180 mg) capsule 1,500 cap PO DAILY 09/04/17 [History Confirmed 02/18/19] vitamin B12 0.5 mg-folic acid 1 mg tablet 500 mg PO DAILY 09/04/17 [History Confirmed 02/18/19] Lisinopril [Prinivil] 10 mg PO DAILY 10/05/17 [History Confirmed 02/18/19] Docusate Sodium [Colace] 100 mg PO BID #20 cap 10/14/17 [Rx Confirmed 02/18/19] [facility] Medical History (Updated 02/18/19 @ 14:57 by Aj Banegas MD) Personal history of colonic polyps (Acute) History of colon polyps (Acute) Hyperlipidemia (Acute) Prostate cancer (Acute) HTN (hypertension) (Chronic) Surgical History (Updated 02/18/19 @ 14:53 by Shantell Mars) History of cholecystectomy (Acute) History of colonoscopy (Acute) History of prostatectomy (Acute) History of splenectomy (Acute) Family History (Updated 02/18/19 @ 14:54 by Shantell Mars) Father Heart disease Hypertension Cancer prostate Mother Heart disease Hypertension Social History (Updated 02/18/19 @ 16:34 by Aj Banegas MD) Smoking Status: Never smoker HPI HPI HPI: JENI LOYA, is a 74 M who presents to the office today for HPI HPI Surgical H&P: Yes HPI: JENI LOYA, is a 74 M who presents to the office today for surgical consultation regarding a surveillance colonoscopy. 74-year-old gentleman. Very pleasant. I have assisted him in February 22, 2016 with a colonoscopy. I removed a polyp from the mid sigmoid colon and from the proximal transverse colon and from the cecum. The cecal polyp was tubular adenoma of the transverse colon polyp tubular adenoma in the sigmoid was a mucosal polyp. He has no specific symptoms. Because of the numerous polyps I have requested him to return at the three-year graciela. He denies bright red blood per rectum or melena. No abdominal pain. No unexpected weight loss. He has not any history of DVT. 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 He admits to not hydrating well. At other times however he strictly denies any orthostasis. He does state that Dr. Surinder Frye is up-to-date on this information. ROS General General: No weight change, appetite, fatigue, colon cancer, breast cancer or weakness HEENT HEENT: No difficulty swallowing, eye injury, eye surgery, swollen glands or hoarseness Endo Endocrine: No thyroid disease, diabetes mellitus, thyroid cancer, Hair loss, heat intolerance or cold intolerance Cardio Cardiovascular: Yes high blood pressure; no murmur, pacemaker, heart disease, atrial fibrillation, heart attack, heart stent, palpitations, shortness of breat with exertion or chest pain Resp Respiratory: No shortness of breath, No sleep apnea, No cough, No COPD, No asthma, No emphysema, No wheezing Gastro Gastrointestinal: No abdominal pain, No nausea or vomiting, No diarrhea, No constipation, No blood in stool, No acid reflux, No hemorrhoids, No ulcers, No gallbladder problem, No black,tarry stools Rashad Hematologic: No blood thinners, No blood disorders, No bleeding, No anemia, No blood clots Neuro Neurologic: No weakness Exam Const General: cooperative, healthy appearing, comfortable, no acute distress Resp Effort & Inspection: normal respiratory effort Auscultation: clear to auscultation bilaterally Cardio Rate: regular rate Rhythm: regular rhythm Heart Sounds: no murmurs Other: Carotids are 3+ bilateral. No carotid bruits GI Palpation: soft, no hepatosplenomegaly Auscultation: normal bowel sounds Neuro Other: Patient appears alert. No acute distress Extrem General: no calf tenderness bilaterally Psych Affect: normal affect Assessment & Plan Plan I recommended the patient a colonoscopy with possible biopsy or polypectomy as indicated. As noted he had previously 3 polyps on February 22, 2016. He has had an opportunity to ask and have questions answered. We will proceed as noted. I very much appreciate the ongoing opportunity of assisting with her surgical care. CC: Dr. Surinder Banegas M.D., F.A.C.S. Coding Level of Care Code Off vis,est,level 3 02/18/19 1723 <Electronically signed by Aj sol MD> Date _ Aj Banegas MD [facility] Signature: Date (if applicable) CC: Surinder Frye MD ~ I have re-examined the patient. There are no clinical changes since date of exam.
--- NOTE | 2019-03-11 08:41 | OP.ENDO_ITS ---
03/11/2019 Crow Frye [address] [place] [address] Re : Colonoscopy procedure for Juan Montez Dear Dr. Frye This procedure was performed on Monday, March 11, 2019. My impressions and recommendations are as follows: Impressions : - Non-thrombosed external hemorrhoids, non-thrombosed internal hemorrhoids and internal hemorrhoids that prolapse with straining, but spontaneously regress to the resting position (Grade II) found on digital rectal exam. - Diverticulosis in the entire examined colon. - One 4 mm polyp at the splenic flexure, removed with a cold biopsy forceps. Resected and retrieved. Recommendations : - Await pathology results. - Repeat colonoscopy in 5 years for surveillance. - Telephone my office for pathology results in 1 week. - Continue present medications. My findings are described in the full procedure note, which is enclosed. If I can be of further assistance, please feel free to contact me at Doctor phone number(s): Work: . Sincerely, Aj Banegas MD 03/11/2019 8:41:28 AM This report has been signed electronically.
== END 2019-03-11 09:34 | disposition home or self-care (01) ==
LOC: EN 06:38 → AC 06:39
PROVIDERS: Family Provider Family Medicine; PCP Family Medicine; Referring Provider Family Medicine; Visit Provider Surgery
PROC: 0DJD8ZZ Inspection of Lower Intestinal Tract, Via Natural or Artificial Opening Endoscopic (ICD-10-PCS; CPT 45378; principal; 2019-03-11 07:55)
DX: Z12.11 Encounter for screening for malignant neoplasm of colon (principal); D12.3 Benign neoplasm of transverse colon; K64.1 Second degree hemorrhoids; K64.4 Residual hemorrhoidal skin tags; K57.30 Diverticulosis of large intestine without perforation or abscess without bleeding; Z86.010 Personal history of colon polyps; I10 Essential (primary) hypertension; E78.5 Hyperlipidemia, unspecified; Z79.82 Long term (current) use of aspirin; Z79.899 Other long term (current) drug therapy
CPT/HCPCS: 45380; 88305; 99152; 99153; J7120

== ENCOUNTER → 2019-03-24 06:53 | Outpatient (CLI) | payer MEDICARE, SELFPAY ==
[2019-03-11 07:08] VITALS: BMI 23.0
[2019-03-24 08:58] LABS: ALB/GLOB Ratio 1.1 RATIO (0.9-2.4); AST(SGOT) 31 U/L (15-37); Alanine Aminotransfer ALT/SGPT 33 U/L (16-61); Albumin, Serum 3.7 g/dL (3.2-5.0); Alkaline Phosphatase 77 U/L (45-117); Anion Gap 10 (5-15); BUN 18 mg/dL (7-18); BUN/Creat Ratio 19.1 RATIO (10-20); Calcium,Total 8.9 mg/dL (8.5-10.1); Chloride 103 mmol/L (98-107); Cholesterol 156 mg/dL (200); Creatinine, Serum 0.94 mg/dL (0.70-1.30); EST Glomerular Filtration Rate 83 mL/min (>60); Est Glom Filt Rate - Afr Amer 101 mL/min (>60); Globulin 3.5 g/dL (2.2-4.2); Glucose 125 mg/dL (74-106); High Density Lipoprotein 61 mg/dL; Potassium 4.4 mmol/L (3.5-5.1); Protein, Total 7.2 g/dL (6.4-8.2); Sodium Level 141 mmol/L (136-145); Thyroid Stim Hormone (TSH) 2.77 uIU/mL (0.358-3.74); Triglycerides 83 mg/dL; Very Low Density Lipoprotein 17 mg/dL (5-40)
== END ==
LOC: LAB.FUTURE 06:56 → LAB 06:57
PROVIDERS: Family Provider Family Medicine; PCP Family Medicine; Referring Provider Family Medicine; Visit Provider Family Medicine
DX: E11.9 Type 2 diabetes mellitus without complications (principal)
CPT/HCPCS: 36415; 80053; 80061; 84443

== ENCOUNTER → 2019-11-02 06:19 | Outpatient (CLI) | payer MEDICARE, SELFPAY ==
[2019-03-11 07:08] VITALS: BMI 23.0
[2019-11-02 07:40] LABS: PSA,Total- Diagnostic 0.01 ng/mL (0.0-4.0)
== END ==
PROVIDERS: PCP Family Medicine; Referring Provider Urology; Visit Provider Urology
DX: C61 Malignant neoplasm of prostate (principal)
CPT/HCPCS: 36415; 84153

== ENCOUNTER → 2020-05-21 06:57 | Outpatient (CLI) | payer MEDICARE, SELFPAY ==
[2019-03-11 07:08] VITALS: BMI 23.0
[2020-05-21 08:03] LABS: ALB/GLOB Ratio 1.1 RATIO (0.9-2.4); AST(SGOT) 23 U/L (15-37); Alanine Aminotransfer ALT/SGPT 36 U/L (16-61); Albumin, Serum 3.6 g/dL (3.2-5.0); Alkaline Phosphatase 75 U/L (45-117); Anion Gap 4 (5-15); BUN 22 mg/dL (7-18); BUN/Creat Ratio 23.4 RATIO (10-20); Calcium,Total 9.1 mg/dL (8.5-10.1); Chloride 107 mmol/L (98-107); Cholesterol 171 mg/dL (200); Creatinine, Serum 0.94 mg/dL (0.70-1.30); EST Glomerular Filtration Rate 83 mL/min (>60); Est Glom Filt Rate - Afr Amer 101 mL/min (>60); Globulin 3.4 g/dL (2.2-4.2); Glucose 138 mg/dL (74-106); High Density Lipoprotein 51 mg/dL; PSA,Total- Diagnostic 0.01 ng/mL (0.0-4.0); Potassium 4.6 mmol/L (3.5-5.1); Sodium Level 139 mmol/L (136-145); Thyroid Stim Hormone (TSH) 4.01 uIU/mL (0.358-3.74); Triglycerides 132 mg/dL; Very Low Density Lipoprotein 26 mg/dL (5-40)
== END ==
PROVIDERS: PCP Family Medicine; Referring Provider Urology; Visit Provider Urology
DX: C61 Malignant neoplasm of prostate (principal); E11.9 Type 2 diabetes mellitus without complications
CPT/HCPCS: 36415; 80053; 80061; 84153; 84443

== ENCOUNTER 2020-07-04 15:26 | Outpatient (RCR) | payer MEDICARE, SELFPAY ==
[2019-03-11 07:08] VITALS: BMI 23.0
== END 2020-07-04 23:59 ==
LOC: IMMUN 15:26
PROVIDERS: PCP Family Medicine; Referring Provider Family Medicine; Visit Provider Family Medicine
DX: Z23 Encounter for immunization (principal)
CPT/HCPCS: 0011A; 0012A; 91301

== ENCOUNTER → 2020-11-02 06:13 | Outpatient (CLI) | payer MEDICARE, SELFPAY ==
[2019-03-11 07:08] VITALS: BMI 23.0
[2020-11-02 07:50] LABS: Anion Gap 6 (5-15); BUN 22 mg/dL (7-18); BUN/Creat Ratio 24.3 RATIO (10-20); Calcium,Total 9.2 mg/dL (8.5-10.1); Chloride 105 mmol/L (98-107); Cholesterol 169 mg/dL (200); Creatinine, Serum 0.91 mg/dL (0.70-1.30); EST Glomerular Filtration Rate 87 mL/min (>60); Est Glom Filt Rate - Afr Amer 105 mL/min (>60); Glucose 129 mg/dL (74-106); High Density Lipoprotein 53 mg/dL; Potassium 4.4 mmol/L (3.5-5.1); Sodium Level 140 mmol/L (136-145); T4 Free Direct 1.04 ng/dL (0.76-1.46); Thyroid Stim Hormone (TSH) 3.39 uIU/mL (0.358-3.74); Triglycerides 89 mg/dL; Very Low Density Lipoprotein 18 mg/dL (5-40)
[2020-11-02 07:52] LABS: PSA,Total- Diagnostic 0.02 ng/mL (0.0-4.0)
== END ==
PROVIDERS: PCP Family Medicine; Referring Provider Urology; Visit Provider Urology
DX: E11.9 Type 2 diabetes mellitus without complications (principal); R79.89 Other specified abnormal findings of blood chemistry; Z85.46 Personal history of malignant neoplasm of prostate
CPT/HCPCS: 36415; 80048; 80061; 84153; 84439; 84443

== ENCOUNTER → 2021-05-02 06:56 | Outpatient (CLI) | payer MEDICARE, SELFPAY ==
[2021-05-02 08:01] LABS: PSA,Total- Diagnostic 0.02 ng/mL (0.0-4.0)
== END ==
PROVIDERS: PCP Family Medicine; Referring Provider Urology; Visit Provider Urology
DX: C61 Malignant neoplasm of prostate (principal)
CPT/HCPCS: 36415; 84153

== ENCOUNTER → 2021-05-08 15:12 | Outpatient (CLI) | payer MEDICARE, SELFPAY ==
[2021-05-08 18:03] LABS: AST(SGOT) 28 U/L (15-37); Alanine Aminotransfer ALT/SGPT 44 U/L (16-61); Albumin, Serum 3.6 g/dL (3.2-5.0); Alkaline Phosphatase 76 U/L (45-117); Anion Gap 9 (5-15); BUN 21 mg/dL (7-18); Calcium,Total 9.2 mg/dL (8.5-10.1); Chloride 103 mmol/L (98-107); Cholesterol 170 mg/dL (200); Creatinine, Serum 0.84 mg/dL (0.70-1.30); EST Glomerular Filtration Rate 95 mL/min (>60); Est Glom Filt Rate - Afr Amer 115 mL/min (>60); Globulin 3.6 g/dL (2.2-4.2); Glucose 99 mg/dL (74-106); High Density Lipoprotein 51 mg/dL; Potassium 4.1 mmol/L (3.5-5.1); Protein, Total 7.2 g/dL (6.4-8.2); Sodium Level 140 mmol/L (136-145); Thyroid Stim Hormone (TSH) 2.28 uIU/mL (0.358-3.74); Triglycerides 271 mg/dL; Very Low Density Lipoprotein 54 mg/dL (5-40)
[2021-05-09 08:37] LABS: Hepatitis C Antibody Non-Reactive (Nonreactive)
== END ==
PROVIDERS: PCP Family Medicine; Referring Provider Family Medicine; Visit Provider Family Medicine
DX: E11.9 Type 2 diabetes mellitus without complications (principal)
CPT/HCPCS: 36415; 80053; 80061; 84443; 86803

== ENCOUNTER → 2021-11-07 | Outpatient (CLI) | payer MEDICARE, SELFPAY ==
[2021-11-07 10:15] LABS: Erythrocyte Sedimentation Rate 5 mm/hr (0-20)
[2021-11-07 10:17] LABS: Hematocrit 46.4 % (40-54); Hemoglobin 15.2 g/dL (13.0-16.5); Mean Corp Hgb Conc 32.8 g/dL (32-36); Mean Corpuscular Hgb 30.5 pg (27.0-32.0); Mean Corpuscular Volume 93.2 fL (80-94); Mean Platelet Vol. 11.5 fl (6.2-12.0); Platelet Count 245 K/mm3 (150-450); RBC Distribution Width CV 14.8 % (11.6-14.6); RBC Distribution Width SD 51.1 fl (35.1-43.9); Red Blood Count 4.98 M/mm3 (4.6-6.2)
[2021-11-07 10:34] LABS: Vitamin B12 917 pg/mL (211-911); Vitamin D,25 Hydroxy 48.1 ng/mL
[2021-11-07 10:50] LABS: ALB/GLOB Ratio 1.1 RATIO (0.9-2.4); AST(SGOT) 27 U/L (15-37); Alanine Aminotransfer ALT/SGPT 35 U/L (16-61); Albumin, Serum 3.6 g/dL (3.2-5.0); Alkaline Phosphatase 74 U/L (45-117); Anion Gap 6 (5-15); BUN 24 mg/dL (7-18); BUN/Creat Ratio 31.1 RATIO (10-20); Calcium,Total 9.1 mg/dL (8.5-10.1); Chloride 106 mmol/L (98-107); Cholesterol 140 mg/dL (200); Creatinine, Serum 0.77 mg/dL (0.70-1.30); EST Glomerular Filtration Rate 104 mL/min (>60); Est Glom Filt Rate - Afr Amer 126 mL/min (>60); Globulin 3.3 g/dL (2.2-4.2); Glucose 116 mg/dL (74-106); High Density Lipoprotein 48 mg/dL; Potassium 4.2 mmol/L (3.5-5.1); Protein, Total 6.9 g/dL (6.4-8.2); Sodium Level 138 mmol/L (136-145); Thyroid Stim Hormone (TSH) 1.82 uIU/mL (0.358-3.74); Triglycerides 77 mg/dL; Very Low Density Lipoprotein 15 mg/dL (5-40)
== END | disposition home or self-care (01) ==
LOC: MFPLAB 08:52
PROVIDERS: PCP Family Medicine; Referring Provider Family Medicine; Visit Provider Family Medicine
DX: R53.83 Other fatigue (principal)
CPT/HCPCS: 36415; 80053; 80061; 82306; 82607; 84403; 84443; 85027; 85652

== ENCOUNTER → 2021-12-09 | Outpatient (CLI) | payer MEDICARE, SELFPAY ==
[2021-12-09 08:22] LABS: PSA,Total- Diagnostic 0.02 ng/mL (0.0-4.0)
== END | disposition home or self-care (01) ==
LOC: LAB 07:21
PROVIDERS: PCP Family Medicine; Referring Provider Urology; Visit Provider Urology
DX: C61 Malignant neoplasm of prostate (principal)
CPT/HCPCS: 36415; 84153

== ENCOUNTER → 2022-04-25 | Outpatient (CLI) | payer MEDICARE, SELFPAY ==
[2022-04-25 09:32] LABS: Anion Gap 4 (5-15); BUN 22 mg/dL (7-18); BUN/Creat Ratio 25.2 RATIO (10-20); Calcium,Total 9.4 mg/dL (8.5-10.1); Chloride 105 mmol/L (98-107); Cholesterol 193 mg/dL (200); Creatinine, Serum 0.87 mg/dL (0.70-1.30); EST Glomerular Filtration Rate 90 mL/min (>60); Est Glom Filt Rate - Afr Amer 109 mL/min (>60); Glucose 156 mg/dL (74-106); High Density Lipoprotein 59 mg/dL; Potassium 4.5 mmol/L (3.5-5.1); Sodium Level 139 mmol/L (136-145); Triglycerides 114 mg/dL; Very Low Density Lipoprotein 23 mg/dL (5-40)
== END | disposition home or self-care (01) ==
LOC: LAB 08:16
PROVIDERS: PCP Family Medicine; Referring Provider Family Medicine; Visit Provider Family Medicine
DX: I10 Essential (primary) hypertension (principal); E11.69 Type 2 diabetes mellitus with other specified complication
CPT/HCPCS: 36415; 80048; 80061

== ENCOUNTER 2022-06-09 09:41 | Outpatient (CLI) | payer MEDICARE, SELFPAY ==
[2022-06-09 12:14] LABS: Absolute Lymphocyte Count 2.36 X10^3/uL (0.83-4.51); Absolute Neutrophil Count 4.7 X10^3/uL (2.0-7.7); Basophil% 1.2 % (0-1); Eosinophil# 0.26 X10^3/uL; Eosinophils% 3.1 % (0-5); Hematocrit 49.5 % (40-54); Lymphocyte # 2.36 X10^3/ul (0.83-4.51); Mean Corp Hgb Conc 32.3 g/dL (32-36); Mean Corpuscular Hgb 29.7 pg (27.0-32.0); Mean Platelet Vol. 12.6 fl (6.2-12.0); Monocyte# 0.98 X10^3/uL; Monocyte% 11.6 % (0-10); NRBC Flagged by Analyzer 0 % (0-5); Neutrophil % 55.6 % (47-70); POSITIVE COUNT YES; RBC Distribution Width CV 14.9 % (11.6-14.6); RBC Distribution Width SD 50.1 fl (35.1-43.9); Red Blood Count 5.38 M/mm3 (4.6-6.2); White Blood Count 8.4 K/mm3 (4.4-11.0)
[2022-06-09 12:42] LABS: Vitamin B12 1085 pg/mL (211-911)
[2022-06-09 13:09] LABS: Differential Indicated SCAN CRITERIA MET
[2022-06-09 13:10] LABS: Platelet Estimate ADEQUATE (ADEQ)
[2022-06-09 13:12] LABS: PSA,Total- Diagnostic 0.02 ng/mL (0.0-4.0)
[2022-06-09 13:14] LABS: ALB/GLOB Ratio 1.1 RATIO (0.9-2.4); AST(SGOT) 21 U/L (15-37); Alanine Aminotransfer ALT/SGPT 32 U/L (16-61); Albumin, Serum 3.9 g/dL (3.2-5.0); Alkaline Phosphatase 82 U/L (45-117); Anion Gap 7 (5-15); BUN 22 mg/dL (7-18); BUN/Creat Ratio 25.5 RATIO (10-20); Calcium,Total 9.3 mg/dL (8.5-10.1); Chloride 104 mmol/L (98-107); Cholesterol 172 mg/dL (200); Creatinine, Serum 0.86 mg/dL (0.70-1.30); EST Glomerular Filtration Rate 92 mL/min (>60); Est Glom Filt Rate - Afr Amer 111 mL/min (>60); Globulin 3.4 g/dL (2.2-4.2); Glucose 139 mg/dL (74-106); High Density Lipoprotein 48 mg/dL; Potassium 4.8 mmol/L (3.5-5.1); Protein, Total 7.3 g/dL (6.4-8.2); Sodium Level 139 mmol/L (136-145); Thyroid Stim Hormone (TSH) 2.76 uIU/mL (0.358-3.74); Triglycerides 145 mg/dL; Very Low Density Lipoprotein 29 mg/dL (5-40)
== END 2022-06-09 23:59 | disposition home or self-care (01) ==
LOC: MFPLAB 09:43
PROVIDERS: PCP Family Medicine; Visit Provider Urology
DX: C61 Malignant neoplasm of prostate (principal); I10 Essential (primary) hypertension
CPT/HCPCS: 36415; 80053; 80061; 82306; 82607; 84153; 84443; 85025

== ENCOUNTER → 2022-06-25 | Outpatient (CLI) | payer MEDICARE, SELFPAY ==
--- NOTE | 2022-06-25 16:38 | STRESSREP ---
Stress Test Report Exercise myocardial perfusion stress test. 77-year-old man with a history of supraventricular tachycardia Stress protocol: Resting EKG demonstrates sinus rhythm with a rate of 74 bpm resting blood pressure is 132/88 mmHg. The patient exercised according to the regular Remy protocol for a total duration of 9 minutes attaining a maximum heart rate of 162 bpm which was 112% of maximum predicted heart rate; the maximum workload was 10.1 metabolic equivalents. At rest there were no ST or T wave changes noted to suggest ischemia and at peak exercise upsloping ST changes only were noted which did not meet the criteria for ischemia. During recovery there was some T wave inversion noted and occasional premature ventricular complex present. No clinical angina was noted the test was terminated due to the target heart rate being achieved/fatigue. The peak blood pressure was 162/82 mmHg. Rate-pressure product was 24,900. Myocardial perfusion protocol. 11.9 mCi of technetium 99m sestamibi was injected at rest. The patient exercised according to regular Remy protocol for total duration of 9 minutes and at peak exercise 33.3 mCi of technetium 99m sestamibi was injected stress images were obtained stress and rest images were reconstructed in comparing the short axis vertical long and horizontal long axis. Gated images were also obtained. Perfusion SPECT analysis: Review of the stress images demonstrate normal uptake of tracer noted in all areas of the myocardium. The resting images similarly demonstrate normal uptake of tracer noted in all areas of the myocardium. No areas of reversibility are noted to suggest ischemia no previous infarct was noted. Gated SPECT analysis: The gated ejection fraction is 72%. Conclusion: Normal exercise myocardial perfusion stress test at a high workload Preserved ejection fraction.
== END | disposition home or self-care (01) ==
PROVIDERS: PCP Family Medicine; Visit Provider Family Medicine
DX: I47.1 Supraventricular tachycardia (principal); R42 Dizziness and giddiness; R94.31 Abnormal electrocardiogram [ECG] [EKG]
CPT/HCPCS: 78452; 93017; A9500; A4216

== ENCOUNTER → 2023-02-21 | Outpatient (CLI) | payer MEDICARE, SELFPAY ==
[2023-02-21 08:18] LABS: Anion Gap 3 (5-15); BUN 25 mg/dL (7-18); BUN/Creat Ratio 28.1 RATIO (10-20); Calcium,Total 9.2 mg/dL (8.5-10.1); Chloride 106 mmol/L (98-107); Cholesterol 167 mg/dL (200); Creatinine, Serum 0.89 mg/dL (0.70-1.30); EST Glomerular Filtration Rate 88 mL/min (>60); Est Glom Filt Rate - Afr Amer 107 mL/min (>60); Glucose 140 mg/dL (74-106); High Density Lipoprotein 52 mg/dL; Potassium 4.3 mmol/L (3.5-5.1); Sodium Level 138 mmol/L (136-145); Triglycerides 108 mg/dL; Very Low Density Lipoprotein 22 mg/dL (5-40)
== END | disposition home or self-care (01) ==
LOC: LAB 07:12
PROVIDERS: PCP Family Medicine; Referring Provider Family Medicine; Visit Provider Family Medicine
DX: E11.69 Type 2 diabetes mellitus with other specified complication (principal); E13.22 Other specified diabetes mellitus with diabetic chronic kidney disease; N18.9 Chronic kidney disease, unspecified
CPT/HCPCS: 36415; 80048; 80061

== ENCOUNTER → 2023-03-17 | Outpatient (CLI) | payer MEDICARE, SELFPAY ==
[2023-03-17 11:20] LABS: PSA,Total- Diagnostic 0.02 ng/mL (0.0-4.0)
== END | disposition home or self-care (01) ==
LOC: LAB 09:43
PROVIDERS: PCP Family Medicine; Referring Provider Urology; Visit Provider Urology
DX: C61 Malignant neoplasm of prostate (principal)
CPT/HCPCS: 36415; 84153

== ENCOUNTER → 2023-08-25 | Outpatient (CLI) | payer MEDICARE, SELFPAY ==
[2023-08-25 09:50] LABS: Vitamin B12 994 pg/mL (211-911)
[2023-08-25 14:15] LABS: ALB/GLOB Ratio 1.1 RATIO (0.9-2.4); AST(SGOT) 24 U/L (15-37); Alanine Aminotransfer ALT/SGPT 32 U/L (16-61); Albumin, Serum 3.6 g/dL (3.2-5.0); Alkaline Phosphatase 77 U/L (45-117); Anion Gap 4 (5-15); BUN 19 mg/dL (7-18); BUN/Creat Ratio 21.6 RATIO (10-20); Calcium,Total 9.1 mg/dL (8.5-10.1); Chloride 107 mmol/L (98-107); Cholesterol 172 mg/dL (200); Creatinine, Serum 0.88 mg/dL (0.70-1.30); EST Glomerular Filtration Rate 89 mL/min (>60); Est Glom Filt Rate - Afr Amer 108 mL/min (>60); Globulin 3.4 g/dL (2.2-4.2); Glucose 162 mg/dL (74-106); High Density Lipoprotein 45 mg/dL; Potassium 4.3 mmol/L (3.5-5.1); Sodium Level 138 mmol/L (136-145); Triglycerides 171 mg/dL; Very Low Density Lipoprotein 34 mg/dL (5-40)
== END | disposition home or self-care (01) ==
PROVIDERS: PCP Family Medicine; Referring Provider Family Medicine; Visit Provider Family Medicine
DX: E13.22 Other specified diabetes mellitus with diabetic chronic kidney disease (principal)
CPT/HCPCS: 36415; 80053; 80061; 82607

== ENCOUNTER 2023-11-02 05:35 | Day surgery (SDC) | payer MEDICARE, SELFPAY ==
[2023-11-02] VITALS (8 sets, daily range): BP systolic 99–116; BP diastolic 63–86; PULSE 60–74; RESP 16–18; TEMP 36.3–36.7; O2SAT 99–100; BMI 22.6
--- NOTE | 2023-11-02 05:54 | HP.PCM_ITS ---
History and Physical Date of Admission: 11/02/23 Intake Visit Reasons: COLONOSCOPY RECALL Chief Complaint: colonoscopy recall Is patient in pain?: No Allergies No Known Allergies Allergy (Verified 09/29/23 13:57) Medications ?Medication ?Instructions ?Recorded ?Confirmed ?Type aspirin 81 mg chewable tablet 81 mg PO DAILY HEART HEALTH 09/04/17 09/29/23 History (Katie Chewable Low Dose Aspirin) atorvastatin 20 mg tablet 20 mg PO QHS CHOLESTEROL 30 days 09/04/17 09/29/23 History ##30 metoprolol succinate 25 mg 25 mg PO DAILY BP 30 days ##30 09/04/17 09/29/23 History tablet,extended release 24 hr vitamin B12 0.5 mg-folic acid 1 mg 500 mg PO DAILY SUPPLEMENT 09/04/17 09/29/23 History tablet amlodipine 5 mg tablet 5 mg PO DAILY 09/29/23 09/29/23 History PFSH Medical History (Updated 03/11/19 @ 08:[address] Aj Banegas MD) Personal history of colonic polyps Hyperlipidemia History of colon polyps HTN (hypertension) Prostate cancer Surgical History (Updated 03/11/19 @ 08:[address] Aj Banegas MD) History of colonoscopy History of prostatectomy History of cholecystectomy History of splenectomy Family History (Updated 02/18/19 @ 14:54 by Shantell Mars) Father Heart disease Hypertension Cancer prostateMother Heart disease Hypertension Social History (Updated 02/18/19 @ 16:[address] Aj Banegas MD) Smoking Status: Never smoker HPI HPI HPI: 78-year-old gentleman is referred by Dr. Surinder Frye for 5-year follow-up surveillance colonoscopy and a written copy my surgical consult and recommendations will return to him. Previously March 11, 2019 I assisted the patient with a colonoscopy. Hemorrhoids were noted. Diverticulosis of the colon. 4 mm polyp at the splenic flexure tubular adenoma. I had previously assisted him February 22, 2016 with a colonoscopy with a cecal polyp tubular adenoma transverse colon polyp tubular adenoma and sigmoid competent mucosal polyp. He is feeling well today. No bright red blood per rectum or melena. No abdominal pain. He is still very active. He is enjoying a good quality of life. ROS General General: No weight change, appetite, fatigue, colon cancer, breast cancer or weakness HEENT HEENT: No difficulty swallowing, eye injury, eye surgery, swollen glands or hoarseness Endo Endocrine: No thyroid disease, diabetes mellitus, thyroid cancer, Hair loss, heat intolerance or cold intolerance Skin Skin: No rash or changing moles Musc Musculoskeletal: No back problems, arthritis, rheumatoid arthritis, gout or joint pain Cardio Cardiovascular: Yes high blood pressure; No murmur, pacemaker, heart disease, atrial fibrillation, heart attack, heart stent, palpitations, shortness of breat with exertion or chest pain Psych Psychiatric: No depression, anxiety or hearing voices Resp Respiratory: No shortness of breath, No sleep apnea, No cough, No COPD, No asthma, No emphysema and No wheezing Gastro Gastrointestinal: No abdominal pain, No nausea or vomiting, No diarrhea, No constipation, No blood in stool, No acid reflux, No hemorrhoids, No ulcers, No gallbladder problem and No black,tarry stools Rashad Hematologic: No blood thinners, No blood disorders, No bleeding, No anemia and No blood clots Neuro Neurologic: No system reviewed and no additional complaints, except as documented, No as per HPI, No abnormal gait, No abnormal hearing, No abnormal movements, No abnormal speech, No behavioral changes, No burning sensations, No confusion, No convulsions, No disequilibrium, No dizziness, No localized weakness, No frequent falls, No headache(s), No lack of coordination, No loss of vision, No memory loss, No numbness, No other visual disturbances, No radicular pain, No restless legs, No sensory deficit, No syncope, No tingling, No tremor(s), No weakness and No other Exam Const General: cooperative, healthy appearing and comfortable [facility] Head: normal to inspection Eyes General: appearance normal, both eyes and all related structures Neck Neck: normal visual inspection Chest Chest palpation & inspection: normal inspection of the chest Resp Effort & Inspection: normal respiratory effort Auscultation: clear to auscultation bilaterally Cardio Rate: regular rate Rhythm: regular rhythm GI Palpation: soft and no hepatosplenomegaly Musc Cervical Spine: normal cervical lordosis Skin General: no rashes or lesions noted Neuro General: patient alert, patient awake and patient oriented x3 Psych Appearance: grossly normal Assessment and Plan Assessment and Plan (1) Personal history of colonic polyps: Status: Acute Plan: The patient is enjoying a good quality of life. I recommend to him a colonoscopy with possible biopsy or polypectomy as indicated. He is aware of the technique, benefit, risk, alternatives. He is had an opportunity to ask and have questions answered. We will schedule and proceed at his discretion. He is on low-dose aspirin therapy which may be continued. I appreciate the ongoing opportunity of assisting with the surgical care Copy: Dr. Surinder Banegas M.D., F.A.C.S. I have examined the patient and the H&P has been reviewed. There are no clinical changes since date of exam. Aj Banegas M.D., F.A.C.S.
[2023-11-02] MEDS: Lactated Ringers 1,000 ML 15 ML IV (06:25)
--- NOTE | 2023-11-02 06:58 | PRE.ANES_ITS ---
ASA Classification* ASA Classification ASA Classification: 2 Assessment & Plan Anesthesia* Anesthesia Assessment Anesthesia Assessment: Discussed sedation and/or anesthesia options, risks, benefits, and alternatives with patient/parents/legal guardian/POA. Questions invited. The patient/parents/legal guardian/POA seems to understand and agrees to proceed with anesthesia plan. Reviewed the physical assessment, medical history, allergy history and patient home medications list prior to surgery/procedure/anesthetic and documented any changes. Performed airway and anesthesia risk assessments. Anesthesia Type Anesthesia Type: MAC Pre-Assessment Diagnosis/Proposed Procedure Planned Operative Procedure(s): COLONOSCOPY Anesthesia History Anesthesia History - licensed architect: Anesthesia History - licensed architect Hx Hospitalization No 10/26/23 16:03 Any Problems With Anesthesia No 10/26/23 16:03 Cholinesterase deficiency No 10/26/23 16:03 You/Your Family Experience No 10/26/23 16:03 fever (hyperthermia) with Relationship Recent Exposure to Contagious No 11/02/23 06:18 Disease Does patient have nerve No 10/26/23 16:03 stimulator Patient instructed to have device shut off --Does patient have Pacemaker No 11/02/23 06:21 or ICD? When Was Last Pacemaker Check QUESTION #4 FULL TEXT: You/Your Family Experience fever (hyperthermia) with Anesthesia Last Oral Intake Last Oral intake: Last Oral Intake NPO since 00:00 11/02/23 06:21 Meds taken in AM with sips of No 11/02/23 06:21 water? Meds patient instructed to take am of surgery PONV PONV - licensed architect: PONV - licensed architect Female No 10/26/23 16:03 HX of Motion Sickness No 10/26/23 16:03 HX of N/V After Surgery No 10/26/23 16:03 Non-Smoker Yes 10/26/23 16:03 Duration of Surgery greater No 10/26/23 16:03 than 60 minutes Number of Risk Factors 1 10/26/23 16:03 PONV Score Low Risk 10/26/23 16:03 Height & Weight Height & Weight: Anesthesia: Height & Weight Height 6 ft 11/02/23 06:21 Weight: 75.8 kg 11/02/23 06:21 Body Mass Index (BMI) 22.6 11/02/23 06:21 Respiratory Assessment Respiratory Assessment - licensed architect: Respiratory Tract Infection Hx - licensed architect Hx Respiratory Tract Infection No 10/26/23 16:03 STOP Sleep Apnea STOP Sleep Apnea - licensed architect: STOP Sleep Apnea - licensed architect Hx Hypertension Yes: PER PT, CONTROLLED ON 10/26/23 16:03 MEDS Hx Sleep Apnea No 10/26/23 16:03 CPAP No 10/26/23 16:03 BIPAP Do you snore loudly (louder No 10/26/23 16:03 than talking or can be heard Do you often feel tired/ No 10/26/23 16:03 fatigued/ sleepy during daytime? Has anyone observed you stop No 10/26/23 16:03 breathing during sleep? STOP Results Negative 10/26/23 16:03 QUESTION #5 FULL TEXT : Do you snore loudly (louder than talking or can be heard through closed doors)? 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 Specify any problems Hx of Preganancy in last 3 Months Nurse Filling Out Transfusion & Questions: Date: Time: Patient unable to answer at Yes 10/26/23 16:03 this time (ie. confused, unrespo /Reproduction History /Reproductive History - licensed architect: /Reproductive Hx- licensed architect Hx Now Gestational Age (in weeks): EDC: Hx Hx Para Hx Section SAB Active Medications Active Medications: Current Medications Generic Name Dose Route Start Last Admin Trade Name Freq PRN Reason Stop Dose Admin Lactated Ringer's 1,000 mls @ 15 mls/hr 11/02/23 06:00 11/02/23 06:25 IV 15 mls/hr .Q48H NEFTALI Administration Anesthesia Focused Assessment* Temperature: 97.5 F Pulse Rate: 71 Blood Pressure: 116/86 Respiratory Rate: 18 Pulse Ox: 100 Airway Assessment Mouth opens: 2 cm Mallampati Score: II Focused Labs Anesthesia Preop lab: CBC WBC 8.4 K/mm3 (4.4-11.0) 06/09/22 09:44 RBC 5.38 M/mm3 (4.6-6.2) 06/09/22 09:44 Hgb 16.0 g/dL (13.0-16.5) 06/09/22 09:44 Hct 49.5 % (40-54) 06/09/22 09:44 Plt Count Not Reportable 06/09/22 09:44 CHEMISTRY Potassium 4.3 mmol/L (3.5-5.1) 08/25/23 08:11 Sodium 138 mmol/L (136-145) 08/25/23 08:11 BUN 19 mg/dL (7-18) H 08/25/23 08:11 Creatinine 0.88 mg/dL (0.70-1.30) 08/25/23 08:11 Glucose 162 mg/dL (74-106) H 08/25/23 08:11 TSH 2.76 uIU/mL (0.358-3.74) 06/09/22 09:44 COAG Review of Systems (Anesthesia) ROS Narrative System reviewed and no additional complaints, except as documented. [facility] Medical History (Updated 10/26/23 @ 16:15 by Maite Mcneil) Wears glasses Arthritis Non-smoker Leg cramps History of stress test Personal history of colonic polyps Hyperlipidemia History of colon polyps HTN (hypertension) Prostate cancer Home Medications ?Medication ?Instructions ?Recorded ?Last Taken ?Type aspirin 81 mg chewable tablet 81 mg PO .QOD HEART HEALTH 09/04/17 11/01/23 History (Katie Chewable Low Dose Aspirin) atorvastatin 20 mg tablet 20 mg PO QHS CHOLESTEROL 30 days 09/04/17 11/01/23 History ##30 metoprolol succinate 25 mg 25 mg PO DAILY BP 30 days ##30 09/04/17 11/01/23 History tablet,extended release 24 hr vitamin B12 0.5 mg-folic acid 1 mg 500 mg PO DAILY SUPPLEMENT 09/04/17 11/01/23 History tablet amlodipine 5 mg tablet 5 mg PO QHS 09/29/23 11/01/23 History magnesium 250 mg tablet 250 mg PO .QOD 10/26/23 11/01/23 History Allergy/AdvReac Type Severity Reaction Status Date / Time No Known Allergies Allergy Verified 10/26/23 15:59 Family History Father Heart disease Hypertension Cancer prostate Mother Heart disease Hypertension Surgical History (Updated 10/26/23 @ 16:03 by Maite Mcneil) History of colonoscopy History of prostatectomy History of cholecystectomy History of splenectomy Social History Smoking Status: Never smoker
--- NOTE | 2023-11-02 07:00 | COLBX_PTH ---
PATIENT: JENI LOYA LOC: EN U#:[id number] AGE/SX: 78/M ROOM: RE11/02/[address]: Dr. Aj Banegas MD : 1945 BED: DIS: 11/02/2023 SPEC #: [id number] RECD: 11/02/23 08:53 STATUS: ALEC MOTA #: [id number] GRACE: 11/02/23 07:[address]: Aj Banegas DEPT: SURGICAL PATHOLOGY RECD BY: Mark Sims ENTERED: 11/02/23 11:34 SP TYPE: COLON BX OTHR DR: Dr. Surinder Frye MD Tissues: A - Cecum, NOS B - COLON BIOPSY C - Transverse colon Procedures: Surgery Specimen Level IV HEADER OPERATION: Colonoscopy, polypectomy PRE-OP DIAGNOSIS: Personal history of colonic polyps TISSUE SUBMITTED: A- Cecum polyps x2, B- Hepatic flexure polyps x5, C- Mid transverse polyp MICROSCOPIC DIAGNOSIS A. Cecum polyps, biopsy: Fragments of tubular adenoma. B. Colonic polyps at hepatic flexure, biopsy: Fragments of tubular adenoma. C. Mid transverse colon polyp, biopsy: Tubular adenoma. AM/mr 11/03/2023 MICROSCOPIC DESCRIPTION Slides are reviewed. GROSS DESCRIPTION A. Received in fixative is one container labeled with the patient's name and designated Cecum polyps. The specimen consists of multiple irregular fragments of light yan soft tissue that in aggregate measure 1.2 x 0.6 x 0.1 cm. The specimen is totally submitted in one cassette. B. Received in fixative is one container labeled with the patient's name and designated Hepatic flexure polyp. The specimen consists of multiple irregular fragments of light yan soft tissue that in aggregate measure 2.0 x 0.3 x 0.1 cm. The specimen is totally submitted in one cassette. C. Received in fixative is one container labeled with the patient's name and designated Mid transverse colon polyp. The specimen consists of one irregular fragment of light yan soft tissue that measures 0.3 x 0.2 x 0.1 cm. The specimen is totally submitted in one cassette. AM/mr 11/02/2023 TC:5 CPT:26628x5
--- NOTE | 2023-11-02 07:37 | PCM.POST.ANE ---
Anesthesia: Postop Eval I Current Vital Signs Temperature: 97.3 F Pulse Rate: 68 Blood Pressure: 99/66 Respiratory Rate: 16 Pulse Ox: 100 Oxygen Delivery Method: Room Air Assessment Airway patent: Yes Spontaneous unlabored respirations: Yes Mental status: Asleep nausea: No Vomiting: No Anesthesia Complication: No Fluid Hydration Crystalloid volume administer (ml): 600 Total IV fluid infused: 600 Progress Note Anesthesia document: Postop Eval 1 completed: Yes
--- NOTE | 2023-11-02 07:38 | OP.CCLET_ITS ---
11/02/2023 Crow Frye [address] [place] [address] Re : Colonoscopy procedure for Juan Manuelenrique Dear Dr. Frye This procedure was performed on Thursday, November 02, 2023. My impressions and recommendations are as follows: Impressions : - Non-thrombosed internal hemorrhoids and internal hemorrhoids that prolapse with straining, but spontaneously regress to the resting position (Grade II) found on digital rectal exam. - Two 5 to 6 mm polyps in the cecum, removed with a cold snare. Resected and retrieved. - Five 3 to 4 mm polyps at the hepatic flexure, removed with a cold biopsy forceps. Resected and retrieved. - One 5 mm polyp in the mid transverse colon, removed with a cold biopsy forceps. Resected and retrieved. - Diverticulosis in the sigmoid colon and in the descending colon. Recommendations : - Discharge patient to home. - Resume previous diet. - Continue present medications. - Repeat colonoscopy in 3 years for surveillance based on pathology results. - Telephone my office for pathology results in 1 week. Hemostasis was rechecked and was intact at all sites. My findings are described in the full procedure note, which is enclosed. If I can be of further assistance, please feel free to contact me at Doctor phone number(s): Work: . Sincerely, Aj Banegas MD 11/02/2023 7:37:46 AM This report has been signed electronically.
--- NOTE | 2023-11-02 07:38 | OP.COLON_ITS ---
Patient Name: Juan Montez Procedure Date: 11/02/2023 6:58 AM Date of : 1945 Age: 78 Procedure: Colonoscopy Indications: High risk colon cancer surveillance: Personal history of colonic polyps Providers: Aj Banegas MD Referring MD: Crow Frye Medicines: See the Anesthesia note for documentation of the administered medications Patient Profile: Last Colonoscopy: February 2019. Complications: No immediate complications. Procedure: Pre-Anesthesia Assessment: - Prior to the procedure, a History and Physical was performed, and patient medications and allergies were reviewed. The patient's tolerance of previous anesthesia was also reviewed. The risks and benefits of the procedure and the sedation options and risks were discussed with the patient. All questions were answered, and informed consent was obtained. Prior Anticoagulants: The patient has taken no anticoagulant or antiplatelet agents. ASA Grade Assessment: II - A patient with mild systemic disease. After reviewing the risks and benefits, the patient was deemed in satisfactory condition to undergo the procedure. After I obtained informed consent, the scope was passed under direct vision. Throughout the procedure, the patient's blood pressure, pulse, and oxygen saturations were monitored continuously. The colonoscope was introduced through the anus and advanced to the cecum, identified by appendiceal orifice and ileocecal valve. The colonoscopy was performed without difficulty. The patient tolerated the procedure well. The quality of the bowel preparation was good. The ileocecal valve and the appendiceal orifice were photographed. Scope In: 7:09:09 AM Scope Withdrawal Time 0 hours 18 minutes 51 seconds Scope Out: 7:30:49 AM Total Procedure Duration Time 0 hours 21 minutes 40 seconds Findings: The digital rectal exam findings include non-thrombosed internal hemorrhoids and internal hemorrhoids that prolapse with straining, but spontaneously regress to the resting position (Grade II). Pertinent negatives include normal prostate (size, shape, and consistency). Two sessile polyps were found in the cecum. The polyps were 5 to 6 mm in size. These polyps were removed with a cold snare. Resection and retrieval were complete. Five sessile polyps were found in the hepatic flexure. The polyps were 3 to 4 mm in size. These polyps were removed with a cold biopsy forceps. Resection and retrieval were complete. A 5 mm polyp was found in the mid transverse colon. The polyp was sessile. The polyp was removed with a cold biopsy forceps. Resection and retrieval were complete. Multiple diverticula were found in the sigmoid colon and descending colon. Impression: - Non-thrombosed internal hemorrhoids and internal hemorrhoids that prolapse with straining, but spontaneously regress to the resting position (Grade II) found on digital rectal exam. - Two 5 to 6 mm polyps in the cecum, removed with a cold snare. Resected and retrieved. - Five 3 to 4 mm polyps at the hepatic flexure, removed with a cold biopsy forceps. Resected and retrieved. - One 5 mm polyp in the mid transverse colon, removed with a cold biopsy forceps. Resected and retrieved. - Diverticulosis in the sigmoid colon and in the descending colon. Recommendation: - Discharge patient to home. - Resume previous diet. - Continue present medications. - Repeat colonoscopy in 3 years for surveillance based on pathology results. - Telephone my office for pathology results in 1 week. Hemostasis was rechecked and was intact at all sites. Procedure Code(s): --- Professional --- 02137, Colonoscopy, flexible; with removal of tumor(s), polyp(s), or other lesion(s) by snare technique 17035, 59, Colonoscopy, flexible; with biopsy, single or multiple Diagnosis Code(s): --- Professional --- Z86.010, Personal history of colonic polyps K64.1, Second degree hemorrhoids D12.0, Benign neoplasm of cecum D12.3, Benign neoplasm of transverse colon (hepatic flexure or splenic flexure) K57.30, Diverticulosis of large intestine without perforation or abscess without bleeding CPT copyright 2021 [employer]. All rights reserved. The codes documented in this report are preliminary and upon attending ambulatory care review may be revised to meet current compliance requirements. Aj Banegas MD 11/02/2023 7:37:46 AM This report has been signed electronically. Number of Addenda: 0 Note Initiated On: 11/02/2023 6:58 AM
--- NOTE | 2023-11-02 09:09 | PCM.POSTANE2 ---
Anesthesia Postop Eval I Sum Postop Eval Completion status Anesthesia document: Postop Eval 1 completed: Yes Anesthesia Postop Eval I Summary Anesthesia Postop Eval I Summary: Anesthesia Postop Eval I: Assessment Summary Airway patent Yes 11/02/23 07:44 [email or web address] Spontaneous unlabored Yes 11/02/23 07:44 [email or web address] respirations Mental status Asleep 11/02/23 07:44 [email or web address] nausea No 11/02/23 07:44 [email or web address] Vomiting No 11/02/23 07:44 [email or web address] Anesthesia Postop Eval I: Fluid Summary Crystalloid volume administer 600 11/02/23 07:44 [email or web address] (ml) Colloids volume administered ( ml) Blood Product volume administered (ml) Total IV fluid infused 600 11/02/23 07:44 [email or web address] Anesthesia Postop Eval I: Summary Notes Anesthesia Complication No 11/02/23 07:44 [email or web address] Anesthesia Complication Comment: Post-operative progress note Anesthesia: Postop Eval II Evaluation Mental status: Awake Pain Level: 0 nausea: No Vomiting: No Complications Anesthesia Complication: No
== END 2023-11-02 08:29 | disposition home or self-care (01) ==
LOC: EN 05:35 → AC 05:36
PROVIDERS: PCP Family Medicine; Referring Provider Family Medicine; Visit Provider Surgery
PROC: 0DJD8ZZ Inspection of Lower Intestinal Tract, Via Natural or Artificial Opening Endoscopic (ICD-10-PCS; CPT 45378; principal; 2023-11-02 06:55)
DX: Z12.11 Encounter for screening for malignant neoplasm of colon (principal); Z86.010 Personal history of colon polyps; I10 Essential (primary) hypertension; E78.5 Hyperlipidemia, unspecified; K57.30 Diverticulosis of large intestine without perforation or abscess without bleeding; K64.1 Second degree hemorrhoids; D12.0 Benign neoplasm of cecum; D12.3 Benign neoplasm of transverse colon; Z79.82 Long term (current) use of aspirin; Z79.899 Other long term (current) drug therapy
CPT/HCPCS: 45385; 45380; 88305; J7120; J2405

== ENCOUNTER → 2024-01-05 | Outpatient (CLI) | payer MEDICARE, SELFPAY ==
--- NOTE | 2024-01-05 15:28 | RAD_ITS ---
STUDY: X-RAY - LEFT FOOT CLINICAL: Male, 78 years old. Pain, injury TECHNIQUE: 3 view(s) of the foot. COMPARISON: None. FINDINGS: Normal talus, calcaneus, and tarsal bones. Normal visualized subtalar, talonavicular, calcaneocuboid, tarsal and tarsometatarsal articulations. Normal metatarsi. Normal metatarsophalangeal joint of the great toe. Normal tibial and fibular sesamoid bones. Normal interphalangeal joint of the great toe. Normal phalanges of the great toe. Normal second through fifth metatarsophalangeal joints. Normal interphalangeal joints and phalanges of the lesser toes. The soft tissue structures are unremarkable. RAD/Foot min 3 Views IMPRESSION: Normal x-ray examination of the foot. Electronically Signed: Alex Tenorio MD at 15:46 EDT ,
--- NOTE | 2024-01-05 15:28 | RAD_ITS ---
STUDY: X-RAY - LEFT ANKLE REASON FOR EXAM: Male, 78 years old. Pain, injury TECHNIQUE: 3 view(s) of the ankle. COMPARISON: None. FINDINGS: Normal visualized distal tibia and fibula. Normal medial and lateral malleoli. Normal tibiotalar articulation and ankle mortise. Normal visualized talus and calcaneus. The visualized subtalar, talonavicular, calcaneocuboid and tarsal articulations are normal. Soft tissue swelling. No fracture is seen. RAD/Ankle min 3 Views IMPRESSION: Soft tissue swelling. No fracture is seen. Electronically Signed: Alex Tenorio MD at 15:45 EDT ,
== END | disposition home or self-care (01) ==
LOC: MTRAD 15:22
PROVIDERS: PCP Family Medicine; Referring Provider Nurse Practitioner Family; Visit Provider Nurse Practitioner Family
DX: M25.572 Pain in left ankle and joints of left foot (principal); M79.672 Pain in left foot
CPT/HCPCS: 73610; 73630

== ENCOUNTER → 2024-03-21 | Outpatient (CLI) | payer MEDICARE, SELFPAY ==
[2024-03-21 07:23] LABS: PSA,Total- Diagnostic 0.02 ng/mL (0.0-4.0)
== END | disposition home or self-care (01) ==
LOC: LAB 06:18
PROVIDERS: PCP Family Medicine; Referring Provider Urology; Visit Provider Urology
DX: C61 Malignant neoplasm of prostate (principal)
CPT/HCPCS: 36415; 84153

== ENCOUNTER → 2024-09-01 | Outpatient (CLI) | payer MEDICARE, SELFPAY ==
[2024-09-01 09:29] LABS: ALB/GLOB Ratio 1.6 RATIO (0.9-2.4); AST(SGOT) 27 U/L (<=37); Alanine Aminotransfer ALT/SGPT 22 U/L (<=46); Albumin, Serum 4.1 g/dL (3.4-4.8); Alkaline Phosphatase 75 U/L (40-129); Anion Gap 12 (5-15); BUN 19 mg/dL (4-19); BUN/Creat Ratio 20.3 RATIO (10-20); Calcium,Total 9.3 mg/dL (7.6-11.0); Carbon Dioxide 23.3 mmol/L (21.0-32.0); Chloride 104 mmol/L (98-108); Cholesterol 145 mg/dL (<=200); Creatinine, Serum 0.93 mg/dL (0.70-1.20); EST Glomerular Filtration Rate 84 (>60); Globulin 2.6 g/dL (2.2-4.2); Glucose 152 mg/dL (70-99); High Density Lipoprotein 48 mg/dL; Low Density Lipoprotein Calc. 82 mg/dL; Potassium 4.5 mmol/L (3.3-5.1); Protein, Total 6.7 g/dL (5.9-8.4); Sodium Level 140 mmol/L (133-145); Total Bilirubin 0.91 mg/dL (0.00-1.30); Triglycerides 75 mg/dL; Very Low Density Lipoprotein 15 mg/dL (5-40); cholesterol:hdl ratio screen 3.05
== END | disposition home or self-care (01) ==
LOC: LAB 07:17
PROVIDERS: PCP Family Medicine; Referring Provider Family Medicine; Visit Provider Family Medicine
DX: E13.22 Other specified diabetes mellitus with diabetic chronic kidney disease (principal); N18.9 Chronic kidney disease, unspecified
CPT/HCPCS: 36415; 80053; 80061

== ENCOUNTER → 2025-03-27 | Outpatient (CLI) | payer MEDICARE, SELFPAY ==
[2025-03-27 11:06] LABS: PSA,Total- Diagnostic 0.02 ng/mL (0.00-4.00)
== END | disposition home or self-care (01) ==
LOC: LAB 09:28
PROVIDERS: PCP Family Medicine; Referring Provider Urology; Visit Provider Urology
DX: C61 Malignant neoplasm of prostate (principal)
CPT/HCPCS: 36415; 84153